=== PATIENT | male | born 1985 | race Caucasian/White ===

== ENCOUNTER 2021-08-09 05:49 | Emergency (ER) | payer SELFPAY ==
[~2021-08-09] VITALS: Ht 170.2 cm; Wt 65.3 kg
[2021-08-09 05:59] VITALS: BP 160/102
[2021-08-09] MEDS ORDERED: LORAZEPAM 2MG/ML CPJ IM ONE (06:15)
== END 2021-08-09 06:35 | disposition left against medical advice (07) ==
LOC: ER 06:10
DX: F15.10 Other stimulant abuse, uncomplicated (principal)
CPT/HCPCS: 93005; 99283